=== PATIENT | female | born 1955 | race African-American/Black ===

== ENCOUNTER 2017-03-17 05:31 | Inpatient (IN) | payer OTHER ==
[2017-03-07 16:04] LABS: WBC (NOT ORDERED) (RFLEX) 0 (0-5)
[2017-03-07 16:40] LABS: BASOPHILS 0.5 %; BASOPHILS ABSOLUTE 0.02 10/3/uL (0.0-0.16); EOSINOPHILS ABSOLUTE 0.04 10/3/uL (0.0-0.53); HEMATOCRIT 34.6 % (36.0-48.0); HEMOGLOBIN 11.4 g/dL (12.0-16.0); LYMPHOCYTES ABSOLUTE 1.88 10/3/uL (0.67-4.30); MEAN CORPUS HGB CONC 32.9 g/dL (32.0-36.0); MEAN PLATELET VOLUME 9.3 fL (9.2-13.0); MONOCYTES 6.6 %; MONOCYTES ABSOLUTE 0.27 10/3/uL (0.21-1.20); NEUTROPHILS 45.9 %; NEUTROPHILS ABSOLUTE 1.88 10/3/uL (2.02-8.40); PLATELET COUNT 223 10/3/uL (150-400); RED CELL COUNT 3.68 10/6/uL (4.0-5.6); WHITE BLOOD CELLS 4.1 10/3/uL (4.5-10.5)
[2017-03-07 16:43] LABS: MANUAL DIFF NO %
[2017-03-07 16:44] LABS: INTERNATIONAL NORMAL RATI 1.1 UNITS (-); PROTIME (NOT ORD) 14.3 SEC (12.0-14.5)
[2017-03-07 17:08] LABS: % IRON SAT 21 % (20-50); ALBUMIN 3.7 G/DL (3.5-5.0); ALKALINE PHOSPHATASE 70 U/L (45-117); BUN (BLOOD UREA NITROGEN) 15 MG/DL (6-23); CALCIUM, SERUM 9.1 MG/DL (8.5-10.4); CHLORIDE, SERUM 107 MMOL/L (96-112); CO2 (CARBON DIOXIDE) 28 MMOL/L (24-34); CREATININE 0.76 MG/DL (0.55-1.02); GFR AFRICAN AMERICAN 99 ML/MIN (>=60); GFR NON AFRICAN AMERICAN 85 ML/MIN (>=60); GLOBULIN 3.6 G/DL (2.5-4.1); GLUCOSE, SERUM 86 MG/DL (60-99); IRON BINDING CAPACITY 248 MCG/DL (225-410); IRON, SERUM 53 MCG/DL (35-150); SGOT(AST) 12 U/L (5-40); SGPT(ALT) 14 U/L (5-65); SODIUM, SERUM 141 MMOL/L (135-148); TOTAL BILIRUBIN 0.1 MG/DL (0-1.2); TOTAL PROTEIN 7.3 G/DL (6.0-8.5)
[2017-03-07 18:59] LABS: ASCORBIC ACID (UR NOT ORDER) NEG (NEG); BILIRUBIN, URINE NEGATIVE (NEG); KETONE, URINE NEGATIVE (NEG); LEUKOCYTE ESTERASE(NOT OR NEG (NEG)
--- NOTE | ~2017-03-17 | OP ---
Record Of Operation [facility] [address] [place]. [address] NAME: CHAYO LEO : 57 STATUS : ADM IN PAT#: [id number] AGE: 61 ADM/REG DATE : 03/17/17 MR#: [id number] REPORT SERV DATE: 03/17/17 DICTATED BY: EZRA DUTTON DATE: 03/17/17 REPORT STATUS : Draft TRANSCRIBED BY: MODL DATE: 03/17/17 DATE OF PROCEDURE: 03/17/2017 SURGEON: Ezra Dutton MD. CHIEF CONTRACT OFFICER: Addis Hardwick. ANESTHESIOLOGISTS: Jimy Molina MD. PREOPERATIVE DIAGNOSES: 1. Severe mitral regurgitation. 2. Moderate to severe tricuspid regurgitation. 3. Pulmonary hypertension. 4. patent foramen ovale. 5. Hypertension. 6. Palpitations. POSTOPERATIVE DIAGNOSES: 1. Severe mitral regurgitation. 2. Moderate to severe tricuspid regurgitation. 3. Pulmonary hypertension. 4. patent foramen ovale. 5. Hypertension. 6. Palpitations. OPERATION PROCEDURE PERFORMED: 1. Median sternotomy. 2. Extracorporeal circulation. 3. Complex mitral valve repair with closure of clefts P2 and P3 and edge to edge repair at A3, P3 and a 28 mm posterior Pepper annuloplasty band. 4. Tricuspid annuloplasty with 30 mm Pepper. 5. PFO closure. 6. ЕЛЕНА. 7. Left atrial appendage clip using a 35 mm atrial clip. COMPLICATIONS: None. TUBES AND DRAINS: 19-Colombian Larry to the posterior pericardium, 32-Colombian anterior mediastinal chest tube. POSTOPERATIVE CONDITION: Weaned on 5 mcg/kg per minute of dobutamine. Total cross-clamp 80- 87 minutes. Total cardiopulmonary bypass time of 136 minutes. INTRAOPERATIVE FINDINGS: Transesophageal echo showed severe MR, moderate TR, large PFO, with an EF approximately 40% to 45% there was no MR. The mean gradient across mitral valve was 4. The peak gradient was 7. There was no tricuspid regurgitation, Record Of Operation [address] [place]. [address] NAME: CHAYO LEO : 57 STATUS : ADM IN PAT#: [id number] AGE: 61 ADM/REG DATE : 03/17/17 MR#: [id number] REPORT SERV DATE: 03/17/17 DICTATED BY: EZRA DUTTON DATE: 03/17/17 REPORT STATUS : Draft TRANSCRIBED BY: WAQAS DATE: 03/17/17 and there was a [id number] remnant of the PFO, which was left alone. Intraoperative findings restricted on the mitral valve, posterior leaflet appeared restricted, and there was a cleft between P2 and P3 which was correlated to the largest area of leak, and then there was overriding anterior leaflet, which was secondary to elongated chordae right at the juncture between A2 and A3. INDICATIONS FOR PROCEDURE: Ms. Leo is a 61-year-old female with a history of long-standing mitral regurgitation who was becoming increasingly symptomatic with easy fatigue and dyspnea on exertion. She was seen in the office. Preoperative evaluation was performed. The risks, benefits, and alternatives were discussed including, but not limited to, bleeding, infection, stroke, , heart attack, and need for future operations. All questions were answered. Her STS risk score was calculated and discussed with her operative mortality risk less than 5%, total risk less than 20% were discussed with the patient. All questions were answered. DETAILS OF PROCEDURE: The patient was brought to the operating room, placed supine on the operating room table. After satisfactory induction of general endotracheal anesthesia, she was prepped and draped in the usual sterile fashion. Median sternotomy was performed. Skin and subcutaneous tissues were divided. Clavipectoral fascia was divided. Sternum was divided. Midline sternal retractor was placed. Thymic tissue was divided in the midline. Pericardium was opened in the midline. Pericardial well was created. Ascending aortic cannulation was achieved at the base of the innominate artery in the ascending aorta. Antegrade root vent cardioplegia tack was placed. A 24-Colombian malleable cannula was placed through the pursestring on the superior vena cava. A 28 malleable cannula was placed through the pursestring on the right atrium into the inferior vena cava. The two caval tapes were placed after dissecting out the inferior vena cava and superior vena cava. Cardiopulmonary bypass was initiated after documentation of an adequate ACT. Cross-clamp was brought up. The heart was arrested with cold antegrade cardioplegia for a total of 1500 mL of Custodiol cardioplegia. Sonic arch groove was developed. Sonic arch groove was opened. Self-retaining retractor was placed. Please note that the prior to the cross clamp, a 35 mm atrial clip was placed after sizing the left atrial appendage. The Sondergaard's groove was opened. The left atrial retractor was placed. Using the attachments from the Lagrange retractor and the valve was inspected. Ten posterior annuloplasty stitches were placed, and the valve was interrogated, and it was felt to be leaking at the area of the cleft. Cleft was closed. There was still mild leak which did not improve after placement of the annuloplasty band. The annuloplasty sutures were placed through the anulus from trigone to trigone and the annulus was sized with a 28 mm Pepper band. The Pepper band was lowered into position and anchored using cor-knot. The valve was checked after this in the moderate leak, and after closure of the band, it became apparent that there were elongated chordae right at the area of the leak where A2 became P2. An edge to edge repair was then performed between A3 and P3 using 5-0 [place]-Miguel stitch. The valve was interrogated and there was no leak. The left atrium was then closed in two layers using 3-0 Prolene, and attention was turned to the right atrium. Caval tapes were tightened. The right atrium was opened longitudinally on the right through side wall. Retractor was placed. PFO appeared to be largely closed with the closure of the left atrium which incorporated some of the septum into the closure. The residual PFO was probed. There was one small area which appeared to have a small orifice and this was Record Of Operation [facility] [id number] [facility] [place] [place]. [address] NAME: CHAYO LEO : 57 STATUS : ADM IN PAT#: [id number] AGE: 61 ADM/REG DATE : 03/17/17 MR#: [id number] REPORT SERV DATE: 03/17/17 DICTATED BY: EZRA DUTTON DATE: 03/17/17 REPORT STATUS : Draft TRANSCRIBED BY: MODJob DATE: 03/17/17 addressed with a 4-0 pledgeted [place]-Miguel suture. Attention was then turned to the tricuspid valve. It was sized to a 30 mm Pepper. Eight annuloplasty sutures were placed in the annulus and then the sutures were passed through the Pepper and then Pepper was lowered into position. It was tied into position. The valve was interrogated, and it was felt to be not leaking. De-airing maneuvers were performed. The cross-clamp was released. The caval tapes were left in place, and the right atrium was then closed using 4-0 Prolene in a double layered fashion. Ventricular pacing wires were placed and exteriorized. The caval tapes were released after closing the right atrium. The patient returned to sinus rhythm with 5 mcg/kg per minute. Dobutamine had been started prior to closing the right atrium. The patient was then weaned from cardiopulmonary bypass. The valves were interrogated. Findings were as mentioned in the transesophageal echo portion above. The protamine was administered. The patient was decannulated. All cannulation sites were oversewn with 4-0 Prolene. Hemostasis was achieved. The pericardium was loosely reapproximated over the ascending aorta in the right ventricle. A 19-Colombian Larry was placed in the posterior pericardial space. A 32-Colombian chest tube was placed under the sternum. The sternum was reapproximated using stainless steel sternal wires and we used double wires. The clavipectoral fascia was reapproximated using running #1 StrataFix. Subcutaneous tissues were closed using continuation of the StrataFix, and the skin closed using 2-0 Quill. Dry sterile dressings were placed. The patient was transferred to CVICU in critical, stable condition. C/MODL Ezra Dutton MD / [id number] CC: MD Ivan Palmer M.D. Robert Berglund, M.D.
--- NOTE | ~2017-03-17 | DS ---
Discharge Summary [facility] [address] [place]. [address] NAME: CHAYO BRISENO : 57 STATUS : DIS IN PAT#: [id number] AGE: 61 ADM/REG DATE : 03/17/17 MR#: [id number] REPORT SERV DATE: 03/31/17 DICTATED BY: EZRA DUTTON DATE: 03/30/17 REPORT STATUS : Draft TRANSCRIBED BY: WAQAS DATE: 03/30/17 Data Collection from hospitalization DISCHARGE DIAGNOSES: 1. Severe mitral regurgitation. 2. Arrilotw-ji-joomuc tricuspid regurgitation. 3. Pulmonary hypertension. 4. Patent foramen ovale. 5. Hypertension. 6. Palpitations. CONSULTANTS: Dr. Alejandra Hernandes. PROCEDURES: 1. Median sternotomy extracorporeal circulation complex mitral valve repair with closure of the clefts, P2 and P3; an [id number] repair at A3, P3; a 28-mm posterior Pepper annuloplasty band; tricuspid annuloplasty with 30 mm Pepper PFO closure; ЕЛЕНА left atrial appendage clip using a 35-mm atrial clip, 03/17/2017. 2. Thoracentesis with guidance, 03/23/2017. MEDICATIONS: Aspirin 81 mg daily, Lipitor 40 mg at bedtime, BuSpar 10 mg three times daily, Coreg 6.25 mg twice daily, Cozaar 12.5 mg daily, MiraLAX powder one packet at bedtime, Os- Nicola plus D 500 mg daily, Bentyl 10 mg twice daily, Estrace 0.5 mg daily, Flonase nasal spray one spray each nostril at bedtime as needed, Maxzide one tablet daily, Travatan 1 drop each eye at bedtime, melatonin 5 mg at bedtime, prednisone tapering dose as directed, and [place] 5/325 one every six hours as needed. CONDITION AT DISCHARGE: Stable. DISPOSITION: She had been discharged home to continue a 4-g sodium, low cholesterol, 1800- calorie ADA cardiac diet with activity as discussed. She was to follow up with Dr. Best Miller on 05/02/2017. She was to follow up with myself on 04/19/2017. HOSPITAL COURSE: This 61-year-old female had a history of long-standing mitral regurgitation and was becoming increasingly symptomatic with easy fatigue and dyspnea on exertion. She was seen in the office. Preoperative evaluation had been performed, and the risks, benefits, and alternatives were discussed to include but not limited to, bleeding, infection, stroke, , heart attack, and need for future operations. All of her questions have been answered, and she was agreeable to proceed. She was admitted for this and further treatment. Upon admission to the hospital, she had been taken to the operating room where she did undergo the above procedure. She had tolerated this well and was transferred to the recovery room. Postoperatively, she had been seen by Cardiology and was felt to be doing well postoperatively, however, was still intubated and sedated at that time. On postop day #1, she did report some pain in her lower chest, however, did state that it was tolerable with medications. Her blood pressure was noted to be a little low; however, her heart rate was in the 50s. She was noted to have a temperature of 99.4 and her blood pressure was at 104/51. Her beta-chito and amiodarone were placed on hold for the time being. It was recommended immobilizing the patient and seeing if her blood pressure Discharge Summary [address] [address] NAME: CHAYO BRISENO : 57 STATUS : DIS IN PAT#: [id number] AGE: 61 ADM/REG DATE : 03/17/17 MR#: [id number] REPORT SERV DATE: 03/31/17 DICTATED BY: EZRA DUTTON DATE: 03/30/17 REPORT STATUS : Draft TRANSCRIBED BY: WAQAS DATE: 03/30/17 and the heart rate increased. She was still in the intensive care unit. On postop day #2, she did continue to do well and her heart rate and blood pressure were noted to be better. She was resumed on her amiodarone and beta chito. Her hypernatremia was also noted to have been improved. She was encouraged to increase her activity. On postop day #3, she did remain in stable condition and her Larry drain was removed. She had no new complaints noted. Her hematocrit was noted to be at 26.9, creatinine 0.93. On postop day #4, she was sitting up in bed with a Venturi mask in place as she had some complaints of shortness of breath and palpitations and did state that her heart was pounding and she had also had some sternal pain. Her lungs did reveal decreased breath sounds in the bases. She was noted to have had 3 kg of weight gain and her chest x-ray did look worse. She had been placed on IV Lasix. She appeared to have some pulmonary congestion with bibasilar atelectasis. Her lungs had revealed crackles in the right lower lobe. On 03/22/2017, she had been restarted on her BuSpar, and there was no arrhythmia noted by telemetry. She was encouraged to increase her activity. Her hemoglobin was at 8.1, hematocrit of 24.2. Nitroglycerin paste was discontinued. She was noted to have had some complaints of shortness of breath overnight. She was noted to have a right effusion, however, not had any fever, and her WBCs were noted to have been normal. She did undergo the above ultrasound-guided thoracentesis with removal of 800 mL of fluid. She did tolerate this well and was transferred back to her room. On 03/24/2017, she was afebrile and her vital signs were stable. Her WBCs were noted to be at 15.9. Her hemoglobin was at 7.0 and hematocrit 23.9. Her anxiety had resolved. Discharge planning was begun. She did state that she had felt better. She did remain in stable condition, and as she began to improve, she was then discharged on 03/25/2017 with the above instructions. Information collected by: Lor Box RAlfredoH.I.T. I submit the above information as my discharge summary. JAY/WAQAS Ezra Dutton MD / [id number] CC: MD Ivan Palmer M.D. Robert Berglund, M.D. Mario Mariani, M.D. C. Samuel Ledford, M.D.
[~2017-03-17 05:31] MED LIST: ALLEGRA180 PO; BENTYL10 PO; BUSPAR10 PO; COZ25 PO; ESTRACE0.5 MG PO; FERROUS SULF325 M1 PO; FLONASE NAS; LOP25 PO; LOP50 PO; MAX25 PO; MELATONIN5 M1 PO; MIRALAX POWDER1 PKT PO; MOBIC7.5 PO; OS500+D PO; TRAVATAN 0.004% OPH
[2017-03-17 13:18] LABS: BE (BASE EXCESS) -4.7 MEQ/L (0 +/- 2.5); CARBOXYHEMOGLOBIN 0.3 % (0-3); HCO3 (ACTUAL BICARBONATE) 19.5 MEQ/L (23-27); HEMOBLOGIN CONTENT 9.9 G/DL (12-16); INSTRUMENT SERIAL # 11843; METHEMOGLOBIN 0.7 % (0-3); MODE SIMV; OPERATOR ID 32214; PCO2 (CO2 TENSION) 33 MMHG (35-45); PO2 (O2 TENSION) 492 MMHG (79-93); PRESSURE SUPPORT 0 cm.H2O; SAMPLE Arterial; TIDAL VOLUME 500 ML; pH 7.39 (7.37-7.43)
[2017-03-17 13:31] LABS: HEMATOCRIT 26.4 % (36.0-48.0); HEMOGLOBIN 8.9 g/dL (12.0-16.0); PLATELET COUNT 106 10/3/uL (150-400)
[2017-03-17 13:38] LABS: PARTIAL THROMBO TIME 35.1 SEC (22.5-37.2); PROTIME (NOT ORD) 22.1 SEC (12.0-14.5)
[2017-03-17 13:41] LABS: BUN (BLOOD UREA NITROGEN) 15 MG/DL (6-23); CALCIUM, SERUM 7.3 MG/DL (8.5-10.4); CHLORIDE, SERUM 112 MMOL/L (96-112); CO2 (CARBON DIOXIDE) 24 MMOL/L (24-34); CREATININE 0.81 MG/DL (0.55-1.02); GFR AFRICAN AMERICAN 91 ML/MIN (>=60); GFR NON AFRICAN AMERICAN 79 ML/MIN (>=60); GLUCOSE, SERUM 94 MG/DL (60-99); POTASSIUM, SERUM 3.4 MMOL/L (3.5-5.3); SODIUM, SERUM 143 MMOL/L (135-148)
[2017-03-17 17:10] LABS: HEMATOCRIT 27.1 % (36.0-48.0); HEMOGLOBIN 9.2 g/dL (12.0-16.0)
[2017-03-17 17:20] LABS: POTASSIUM, SERUM 3.9 MMOL/L (3.5-5.3)
[2017-03-17 18:58] LABS: BE (BASE EXCESS) -5.1 MEQ/L (0 +/- 2.5); CARBOXYHEMOGLOBIN 0.3 % (0-3); DEVICE NC; HCO3 (ACTUAL BICARBONATE) 20.3 MEQ/L (23-27); HEMOBLOGIN CONTENT 9.9 G/DL (12-16); INSTRUMENT SERIAL # 11843; METHEMOGLOBIN 0.5 % (0-3); OPERATOR ID 32214; PCO2 (CO2 TENSION) 39 MMHG (35-45); PO2 (O2 TENSION) 174 MMHG (79-93); SAMPLE Arterial; pH 7.33 (7.37-7.43)
[2017-03-18 02:55] LABS: BASOPHILS 0 %; EOSINOPHILS 0 %; HEMOGLOBIN 8.1 g/dL (12.0-16.0); IMMATURE GRANULOCYTES 0.2 %; IMMATURE GRANULOCYTES ABSOLUTE 0.02 10/3/uL (0.0-0.11); LYMPHOCYTES 5.4 %; LYMPHOCYTES ABSOLUTE 0.51 10/3/uL (0.67-4.30); MEAN CORPUS HGB CONC 33.3 g/dL (32.0-36.0); MEAN CORPUSCULAR HEMOGLOB 30.9 pg (26.0-34.0); MEAN CORPUSCULAR VOLUME 92.7 fL (80-100); MEAN PLATELET VOLUME 9.4 fL (9.2-13.0); MONOCYTES 8.2 %; MONOCYTES ABSOLUTE 0.78 10/3/uL (0.21-1.20); NEUTROPHILS 86.2 %; NEUTROPHILS ABSOLUTE 8.19 10/3/uL (2.02-8.40); PLATELET COUNT 97 10/3/uL (150-400); RBC DISTRIBUTION WIDTH 13.8 % (12.0-16.0)
[2017-03-18 02:57] LABS: HEMATOCRIT 24.3 % (36.0-48.0); MANUAL DIFF NO %; RED CELL COUNT 2.62 10/6/uL (4.0-5.6); WHITE BLOOD CELLS 9.5 10/3/uL (4.5-10.5)
[2017-03-18 03:03] LABS: INTERNATIONAL NORMAL RATI 1.4 UNITS (-)
[2017-03-18 03:04] LABS: PROTIME (NOT ORD) 17.4 SEC (12.0-14.5)
[2017-03-18 03:09] LABS: BUN (BLOOD UREA NITROGEN) 16 MG/DL (6-23); CHLORIDE, SERUM 117 MMOL/L (96-112); CO2 (CARBON DIOXIDE) 23 MMOL/L (24-34); CREATININE 0.82 MG/DL (0.55-1.02); GFR AFRICAN AMERICAN 90 ML/MIN (>=60); GFR NON AFRICAN AMERICAN 78 ML/MIN (>=60); GLUCOSE, SERUM 77 MG/DL (60-99); POTASSIUM, SERUM 3.5 MMOL/L (3.5-5.3)
[2017-03-18 03:11] LABS: CALCIUM, SERUM 6.9 MG/DL (8.5-10.4); SODIUM, SERUM 150 MMOL/L (135-148)
[2017-03-18 16:04] LABS: HEMOGLOBIN 8.5 g/dL (12.0-16.0)
[2017-03-18 16:11] LABS: POTASSIUM, SERUM 4.8 MMOL/L (3.5-5.3)
[2017-03-19 06:07] LABS: BASOPHILS 0 %; EOSINOPHILS 0 %; HEMATOCRIT 24.6 % (36.0-48.0); HEMOGLOBIN 8.4 g/dL (12.0-16.0); IMMATURE GRANULOCYTES 0.4 %; IMMATURE GRANULOCYTES ABSOLUTE 0.07 10/3/uL (0.0-0.11); LYMPHOCYTES 8.8 %; LYMPHOCYTES ABSOLUTE 1.55 10/3/uL (0.67-4.30); MEAN CORPUS HGB CONC 34.1 g/dL (32.0-36.0); MEAN CORPUSCULAR HEMOGLOB 31.3 pg (26.0-34.0); MEAN CORPUSCULAR VOLUME 91.8 fL (80-100); MEAN PLATELET VOLUME 9.6 fL (9.2-13.0); MONOCYTES 8.4 %; MONOCYTES ABSOLUTE 1.48 10/3/uL (0.21-1.20); NEUTROPHILS 82.4 %; NEUTROPHILS ABSOLUTE 14.47 10/3/uL (2.02-8.40); PLATELET COUNT 122 10/3/uL (150-400); RED CELL COUNT 2.68 10/6/uL (4.0-5.6)
[2017-03-19 06:09] LABS: MANUAL DIFF NO %; WHITE BLOOD CELLS 17.6 10/3/uL (4.5-10.5)
[2017-03-19 06:27] LABS: BUN (BLOOD UREA NITROGEN) 25 MG/DL (6-23); CALCIUM, SERUM 8.8 MG/DL (8.5-10.4); CHLORIDE, SERUM 109 MMOL/L (96-112); CO2 (CARBON DIOXIDE) 24 MMOL/L (24-34); CREATININE 1.09 MG/DL (0.55-1.02); GFR AFRICAN AMERICAN 64 ML/MIN (>=60); GFR NON AFRICAN AMERICAN 55 ML/MIN (>=60); GLUCOSE, SERUM 136 MG/DL (60-99); POTASSIUM, SERUM 4.8 MMOL/L (3.5-5.3); SODIUM, SERUM 139 MMOL/L (135-148)
[2017-03-20 04:15] LABS: BASOPHILS 0 %; EOSINOPHILS 0 %; HEMATOCRIT 26.9 % (36.0-48.0); HEMOGLOBIN 8.9 g/dL (12.0-16.0); IMMATURE GRANULOCYTES 0.6 %; IMMATURE GRANULOCYTES ABSOLUTE 0.11 10/3/uL (0.0-0.11); LYMPHOCYTES 8.3 %; LYMPHOCYTES ABSOLUTE 1.41 10/3/uL (0.67-4.30); MEAN CORPUS HGB CONC 33.1 g/dL (32.0-36.0); MEAN CORPUSCULAR HEMOGLOB 30.7 pg (26.0-34.0); MEAN CORPUSCULAR VOLUME 92.8 fL (80-100); MONOCYTES 8.8 %; NEUTROPHILS 82.3 %; NEUTROPHILS ABSOLUTE 13.97 10/3/uL (2.02-8.40); RBC DISTRIBUTION WIDTH 14.9 % (12.0-16.0)
[2017-03-20 04:17] LABS: MANUAL DIFF NO %; PLATELET COUNT 174 10/3/uL (150-400)
[2017-03-20 04:30] LABS: CALCIUM, SERUM 8.5 MG/DL (8.5-10.4); CHLORIDE, SERUM 107 MMOL/L (96-112); CREATININE 0.93 MG/DL (0.55-1.02); GFR AFRICAN AMERICAN 77 ML/MIN (>=60); GFR NON AFRICAN AMERICAN 67 ML/MIN (>=60); GLUCOSE, SERUM 146 MG/DL (60-99); POTASSIUM, SERUM 4.1 MMOL/L (3.5-5.3); SODIUM, SERUM 141 MMOL/L (135-148)
[2017-03-20 04:31] LABS: BUN (BLOOD UREA NITROGEN) 19 MG/DL (6-23); CO2 (CARBON DIOXIDE) 31 MMOL/L (24-34)
[2017-03-21 07:19] LABS: BASOPHILS 0.1 %; BASOPHILS ABSOLUTE 0.01 10/3/uL (0.0-0.16); EOSINOPHILS 0.1 %; EOSINOPHILS ABSOLUTE 0.01 10/3/uL (0.0-0.53); HEMATOCRIT 24.2 % (36.0-48.0); HEMOGLOBIN 8.1 g/dL (12.0-16.0); IMMATURE GRANULOCYTES 1.1 %; IMMATURE GRANULOCYTES ABSOLUTE 0.14 10/3/uL (0.0-0.11); LYMPHOCYTES 10.2 %; LYMPHOCYTES ABSOLUTE 1.33 10/3/uL (0.67-4.30); MANUAL DIFF NO %; MEAN CORPUS HGB CONC 33.5 g/dL (32.0-36.0); MEAN CORPUSCULAR HEMOGLOB 31.2 pg (26.0-34.0); MEAN CORPUSCULAR VOLUME 93.1 fL (80-100); MONOCYTES 10.2 %; MONOCYTES ABSOLUTE 1.33 10/3/uL (0.21-1.20); NEUTROPHILS 78.3 %; NEUTROPHILS ABSOLUTE 10.23 10/3/uL (2.02-8.40); PLATELET COUNT 194 10/3/uL (150-400); RBC DISTRIBUTION WIDTH 14.9 % (12.0-16.0); WHITE BLOOD CELLS 13.1 10/3/uL (4.5-10.5)
[2017-03-21 07:34] LABS: BUN (BLOOD UREA NITROGEN) 12 MG/DL (6-23); CALCIUM, SERUM 7.6 MG/DL (8.5-10.4); CHLORIDE, SERUM 112 MMOL/L (96-112); CO2 (CARBON DIOXIDE) 29 MMOL/L (24-34); CREATININE 0.69 MG/DL (0.55-1.02); GFR AFRICAN AMERICAN 110 ML/MIN (>=60); GFR NON AFRICAN AMERICAN 95 ML/MIN (>=60); GLUCOSE, SERUM 116 MG/DL (60-99); POTASSIUM, SERUM 4.1 MMOL/L (3.5-5.3); SODIUM, SERUM 138 MMOL/L (135-148)
[2017-03-22 05:54] LABS: BUN (BLOOD UREA NITROGEN) 10 MG/DL (6-23); CALCIUM, SERUM 8.1 MG/DL (8.5-10.4); CHLORIDE, SERUM 107 MMOL/L (96-112); CO2 (CARBON DIOXIDE) 31 MMOL/L (24-34); CREATININE 0.71 MG/DL (0.55-1.02); GFR AFRICAN AMERICAN 107 ML/MIN (>=60); GFR NON AFRICAN AMERICAN 93 ML/MIN (>=60); GLUCOSE, SERUM 114 MG/DL (60-99); POTASSIUM, SERUM 4.1 MMOL/L (3.5-5.3); SODIUM, SERUM 141 MMOL/L (135-148)
[2017-03-22 06:38] LABS: BASOPHILS 0.1 %; BASOPHILS ABSOLUTE 0.01 10/3/uL (0.0-0.16); EOSINOPHILS 0.8 %; EOSINOPHILS ABSOLUTE 0.07 10/3/uL (0.0-0.53); HEMATOCRIT 24.2 % (36.0-48.0); HEMOGLOBIN 7.9 g/dL (12.0-16.0); IMMATURE GRANULOCYTES ABSOLUTE 0.18 10/3/uL (0.0-0.11); LYMPHOCYTES 23.9 %; MEAN CORPUS HGB CONC 32.6 g/dL (32.0-36.0); MEAN CORPUSCULAR HEMOGLOB 30.7 pg (26.0-34.0); MEAN CORPUSCULAR VOLUME 94.2 fL (80-100); MEAN PLATELET VOLUME 9.3 fL (9.2-13.0); MONOCYTES ABSOLUTE 0.97 10/3/uL (0.21-1.20); NEUTROPHILS 62.2 %; NEUTROPHILS ABSOLUTE 5.46 10/3/uL (2.02-8.40); NUCLEATED RED BLOOD CELLS 0.9 /100WBC (0-0); PLATELET COUNT 225 10/3/uL (150-400); RBC DISTRIBUTION WIDTH 14.8 % (12.0-16.0); RED CELL COUNT 2.57 10/6/uL (4.0-5.6); WHITE BLOOD CELLS 8.8 10/3/uL (4.5-10.5)
[2017-03-22 06:40] LABS: MANUAL DIFF NO %
[2017-03-23 04:29] LABS: BUN (BLOOD UREA NITROGEN) 9 MG/DL (6-23); CALCIUM, SERUM 8.3 MG/DL (8.5-10.4); CHLORIDE, SERUM 105 MMOL/L (96-112); CO2 (CARBON DIOXIDE) 32 MMOL/L (24-34); CREATININE 0.73 MG/DL (0.55-1.02); GFR AFRICAN AMERICAN 104 ML/MIN (>=60); GFR NON AFRICAN AMERICAN 90 ML/MIN (>=60); GLUCOSE, SERUM 110 MG/DL (60-99); POTASSIUM, SERUM 4.4 MMOL/L (3.5-5.3); SODIUM, SERUM 141 MMOL/L (135-148)
[2017-03-23 13:31] LABS: INTERNATIONAL NORMAL RATI 1.2 UNITS (-); PARTIAL THROMBO TIME 26.7 SEC (22.5-37.2); PROTIME (NOT ORD) 15.4 SEC (12.0-14.5)
[2017-03-24 04:37] LABS: BASOPHILS 0.1 %; BASOPHILS ABSOLUTE 0.02 10/3/uL (0.0-0.16); EOSINOPHILS 0.6 %; HEMATOCRIT 23.9 % (36.0-48.0); HEMOGLOBIN 7.9 g/dL (12.0-16.0); IMMATURE GRANULOCYTES 1.4 %; IMMATURE GRANULOCYTES ABSOLUTE 0.22 10/3/uL (0.0-0.11); LYMPHOCYTES 13.2 %; MEAN CORPUS HGB CONC 33.1 g/dL (32.0-36.0); MEAN CORPUSCULAR VOLUME 93.7 fL (80-100); MEAN PLATELET VOLUME 9.1 fL (9.2-13.0); MONOCYTES 6.5 %; MONOCYTES ABSOLUTE 1.03 10/3/uL (0.21-1.20); NEUTROPHILS 78.2 %; NEUTROPHILS ABSOLUTE 12.46 10/3/uL (2.02-8.40); PLATELET COUNT 255 10/3/uL (150-400); RBC DISTRIBUTION WIDTH 14.5 % (12.0-16.0); RED CELL COUNT 2.55 10/6/uL (4.0-5.6)
[2017-03-24 04:40] LABS: MANUAL DIFF NO %; WHITE BLOOD CELLS 15.9 10/3/uL (4.5-10.5)
[2017-03-24 04:48] LABS: CALCIUM, SERUM 8.1 MG/DL (8.5-10.4); CHLORIDE, SERUM 102 MMOL/L (96-112); CO2 (CARBON DIOXIDE) 31 MMOL/L (24-34); CREATININE 0.75 MG/DL (0.55-1.02); GFR AFRICAN AMERICAN 100 ML/MIN (>=60); GFR NON AFRICAN AMERICAN 87 ML/MIN (>=60); GLUCOSE, SERUM 102 MG/DL (60-99); POTASSIUM, SERUM 4.3 MMOL/L (3.5-5.3); SODIUM, SERUM 140 MMOL/L (135-148)
[2017-03-24 04:50] LABS: BUN (BLOOD UREA NITROGEN) 13 MG/DL (6-23)
[2017-03-25] MEDS ORDERED: HALF81 PO (11:44)
[2017-03-25] MEDS ORDERED: LIPITOR40 PO (11:44)
[2017-03-25] MEDS ORDERED: COREG3 PO (11:44)
[2017-03-25] MEDS ORDERED: NORCO1 TA1 PO (11:45)
[2017-03-25] MEDS ORDERED: STERAPRED5 MG PO (11:45)
== END 2017-03-25 14:47 | disposition home or self-care (01) | DRG 220 ==
LOC: SDC/OF 05:31 → CVICU 10:23 → 5NO 03-19 10:35
PROVIDERS: Internal Medicine Cardiovascular Disease; Nurse Practitioner; Nurse Practitioner Family; Thoracic Surgery (Cardiothoracic Vascular Surgery)
DX: I08.1 Rheumatic disorders of both mitral and tricuspid valves (principal); Q21.1 Atrial septal defect; E87.0 Hyperosmolality and hypernatremia; J90 Pleural effusion, not elsewhere classified; I27.2 Other secondary pulmonary hypertension; D69.6 Thrombocytopenia, unspecified; I10 Essential (primary) hypertension; F41.9 Anxiety disorder, unspecified; D64.9 Anemia, unspecified
CPT/HCPCS: 32555; 36415; 71010; 71020; 80048; 80053; 81001; 82330; 82803; 82805; 82947; 82962; 83036; 83540; 83550; 83735; 84132; 84295; 85014; 85018; 85025; 85049; 85347; 85610; 85730; 86850; 86900; 86901; 86920; 87641; 93005; 93312; 93320; 93325; 94002; 94640; 94660; 94770; A9270-GY; C1713; C1769; C1894; J0690; J1644; J1940; J2150; J2250; J2370; J2405; J2440; J2720; J2930; J3010; J3370; J3475; P9045; P9047

== ENCOUNTER 2017-04-04 18:28 | Emergency (ER) | payer OTHER ==
[2017-04-04 16:52] LABS: BASOPHILS 0 %; EOSINOPHILS 0.2 %; EOSINOPHILS ABSOLUTE 0.02 10/3/uL (0.0-0.53); HEMOGLOBIN 8.9 g/dL (12.0-16.0); IMMATURE GRANULOCYTES 0.3 %; IMMATURE GRANULOCYTES ABSOLUTE 0.03 10/3/uL (0.0-0.11); LYMPHOCYTES 11.5 %; LYMPHOCYTES ABSOLUTE 1.08 10/3/uL (0.67-4.30); MEAN CORPUS HGB CONC 31.9 g/dL (32.0-36.0); MEAN CORPUSCULAR HEMOGLOB 30.5 pg (26.0-34.0); MEAN CORPUSCULAR VOLUME 95.5 fL (80-100); MEAN PLATELET VOLUME 8.5 fL (9.2-13.0); MONOCYTES 7.3 %; MONOCYTES ABSOLUTE 0.68 10/3/uL (0.21-1.20); NEUTROPHILS 80.7 %; NEUTROPHILS ABSOLUTE 7.56 10/3/uL (2.02-8.40); RBC DISTRIBUTION WIDTH 15.9 % (12.0-16.0); RED CELL COUNT 2.92 10/6/uL (4.0-5.6)
[2017-04-04 16:53] LABS: ER CBC TAT 0 Hrs 10 Mins; HEMATOCRIT 27.9 % (36.0-48.0); MANUAL DIFF NO %; PLATELET COUNT 427 10/3/uL (150-400); WHITE BLOOD CELLS 9.4 10/3/uL (4.5-10.5)
[2017-04-04 16:55] LABS: INTERNATIONAL NORMAL RATI 1.3 UNITS (-); PARTIAL THROMBO TIME 28.2 SEC (22.5-37.2); PROTIME (NOT ORD) 15.6 SEC (12.0-14.5)
[2017-04-04 17:04] LABS: BUN (BLOOD UREA NITROGEN) 13 MG/DL (6-23); CALCIUM, SERUM 8.9 MG/DL (8.5-10.4); CHLORIDE, SERUM 110 MMOL/L (96-112); CO2 (CARBON DIOXIDE) 28 MMOL/L (24-34); CREATININE 0.81 MG/DL (0.55-1.02); GFR AFRICAN AMERICAN 91 ML/MIN (>=60); GFR NON AFRICAN AMERICAN 79 ML/MIN (>=60); GLUCOSE, SERUM 112 MG/DL (60-99); POTASSIUM, SERUM 4.3 MMOL/L (3.5-5.3); SODIUM, SERUM 145 MMOL/L (135-148)
[2017-04-04 17:10] LABS: CHEST PAIN PROFILE TAT 0 Hrs 27 Mins
[~2017-04-04 18:28] MED LIST changes: +COREG3 PO; +HALF81 PO; +LIPITOR40 PO; +NORCO1 TA1 PO; +STERAPRED5 MG PO
== END 2017-04-04 18:47 | disposition home or self-care (01) ==
LOC: ER 18:28
PROVIDERS: Emergency Medicine
DX: J90 Pleural effusion, not elsewhere classified (principal); I10 Essential (primary) hypertension; Z88.5 Allergy status to narcotic agent; Z79.82 Long term (current) use of aspirin; Z79.52 Long term (current) use of systemic steroids; Z79.899 Other long term (current) drug therapy
CPT/HCPCS: 80048; 83735; 83880; 84484; 85025; 85610; 85730; 93005; 96374; 99284